=== PATIENT | female | born 1985 | race Caucasian/White ===

== ENCOUNTER 2016-07-12 04:19 | Emergency (ER) | payer BC ==
[~2016-07-12 04:19] MED LIST changes: -NORCO 325 MG-51 TA1 PO
[2016-07-12] MEDS ORDERED: NORCO 325 MG-51 TA1 PO (05:09)
== END 2016-07-12 05:22 | disposition home or self-care (01) ==
LOC: ED 04:19
DX: R10.13 Epigastric pain (principal); R11.2 Nausea with vomiting, unspecified
CPT/HCPCS: J2270; J2405

== ENCOUNTER → 2016-07-12 | Outpatient (CLI) | payer BC ==
[~2016-07-12] MED LIST: HYDROCHLOROTH12.5 M1 PO; NORCO 325 MG-51 TA1 PO
== END ==
LOC: RAD 09:28
DX: R10.13 Epigastric pain (principal); K80.20 Calculus of gallbladder without cholecystitis without obstruction